=== PATIENT | female | born 1955 | race Caucasian/White ===

== ENCOUNTER 2018-11-18 14:34 | Observation (INO) | payer OTHER ==
[2018-11-18] MEDS ORDERED: ASPIRIN 81 MG TABLET, CHEWABLE PO ONE (15:33)
--- NOTE | 2018-11-18 15:35 | ER Document Report ---
ED Medical Screen (RME) - General Chief Complaint: Palpitations Stated Complaint: CHEST TIGHTNESS Time Seen by Provider: 11/18/18 15:33 Mode of Arrival: Ambulatory Information source: Patient Notes: Patient reports having midsternal chest discomfort that started around 2 PM. Patient states around 230 she had increased heart rate and measured her heart rate at 170 bpm. Patient does complain of some dizziness nausea and shortness of breath. hx: Hypertension I have greeted and performed a rapid initial assessment of this patient. A comprehensive ED assessment and evaluation of the patient, analysis of test results and completion of the medical decision making process will be conducted by additional ED providers. TRAVEL OUTSIDE OF THE [place] IN LAST 30 DAYS: No - Related Data Allergies/Adverse Reactions: No Known Allergies Allergy (Unverified 10/04/14 21:40) Past Medical History - Past Medical History Cardiac Medical History: Reports: Hx Hypercholesterolemia, Hx Hypertension Past Surgical History: Reports: Hx Appendectomy - Immunizations Hx Diphtheria, Pertussis, Tetanus Vaccination: Yes Physical Exam - Vital signs Vitals: Temp Pulse Resp BP Pulse Ox 98.7 F 84 18 147/83 H 96 11/18/18 14:39 11/18/18 14:39 11/18/18 14:39 11/18/18 14:39 11/18/18 14:39 - Respiratory Respiratory status: No respiratory distress Chest status: Nontender Breath sounds: Normal Chest palpation: Normal Course - Vital Signs Vital signs: Temp Pulse Resp BP Pulse Ox 98.7 F 84 18 147/83 H 96 11/18/18 14:39 11/18/18 14:39 11/18/18 14:39 11/18/18 14:39 11/18/18 14:39 Doctor's Discharge - Discharge Referrals: MANUEL OLIVEIRA PA [Primary Care Provider] - Follow up as needed
[2018-11-18 16:22] LABS: ABSOLUTE BASOPHILS # (AUTO) 0.1 10^3/uL (0.0-0.2); ABSOLUTE EOSINOPHILS # (AUTO) 0.1 10^3/uL (0.0-0.6); ABSOLUTE LYMPHOCYTES (AUTO) 1.6 10^3/uL (0.5-4.7); ABSOLUTE MONOCYTES (AUTO) 0.4 10^3/uL (0.1-1.4); BASOPHILS % (AUTO) 0.9 % (0-2); EOSINOPHILS % (AUTO) 1.2 % (0-6); HEMATOCRIT 43.5 % (36.0-47.0); LYMPHOCYTES % (AUTO) 22.6 % (13-45); MEAN CORPUSCULAR HEMOGLOBIN 28.5 pg (27.0-33.4); MEAN CORPUSCULAR HGB CONC 34.5 g/dL (32.0-36.0); MEAN CORPUSCULAR VOLUME 83 fl (80-97); MONOCYTES % (AUTO) 5.8 % (3-13); PLATELET COUNT 286 10^3/uL (150-450); RED BLOOD COUNT 5.27 10^6/uL (3.72-5.28); RED CELL DISTRIBUTION WIDTH 12.8 % (11.5-14.0); SEGMENTED NEUTROPHILS % (AUTO) 69.5 % (42-78); TOTAL CELLS COUNTED % (AUTO) 100 %; WHITE BLOOD COUNT 7.3 10^3/uL (4.0-10.5)
[2018-11-18 16:28] LABS: INTERNATIONAL RATION (INR) 0.85; PARTIAL THROMBOPLASTIN TIME 28.9 SEC (23.5-35.8)
--- NOTE | 2018-11-18 16:29 | ER Document Report ---
ED General - General Chief Complaint: Palpitations Stated Complaint: CHEST TIGHTNESS Time Seen by Provider: 11/18/18 15:33 Mode of Arrival: Ambulatory Information source: Patient Notes: This is a 63-year-old female with a history of asthma, hypertension who presents to the emergency room after an episode of chest fluttering, chest tightness and fast heartbeat. Patient does have a heart monitor attached to her watch and her heart rate was 170 at the time of her symptoms. She does report fatigue and being under a lot of stress lately. She currently denies any chest pain. TRAVEL OUTSIDE OF THE [place] IN LAST 30 DAYS: No - HPI Onset: This afternoon Onset/Duration: Gradual Quality of pain: Dull Severity: Mild Pain Level: 1 Associated symptoms: Chest pain. denies: Fever, Shortness of breath Exacerbated by: Denies Relieved by: Denies Similar symptoms previously: No Recently seen / treated by doctor: No - Related Data Allergies/Adverse Reactions: No Known Allergies Allergy (Unverified 10/04/14 21:40) Past Medical History - General Information source: Patient - Social History Smoking Status: Never Smoker Cigarette use (# per day): No Chew tobacco use (# tins/day): No Frequency of alcohol use: None Drug Abuse: None Lives with: Spouse/Significant other Family History: Reviewed & Not Pertinent Patient has suicidal ideation: No Patient has homicidal ideation: No - Past Medical History Cardiac Medical History: Reports: Hx Hypercholesterolemia, Hx Hypertension Pulmonary Medical History: Reports: None Neurological Medical History: Reports: None Endocrine Medical History: Reports: None Renal/ Medical History: Reports: None. Denies: Hx Peritoneal Dialysis Malignancy Medical History: Reports: None GI Medical History: Reports: None Psychiatric Medical History: Reports: None Traumatic Medical History: Reports: None Infectious Medical History: Reports: None Past Surgical History: Reports: Hx Appendectomy - Immunizations Hx Diphtheria, Pertussis, Tetanus Vaccination: Yes Hx Pneumococcal Vaccination: 08/18/14 Review of Systems - Review of Systems Constitutional: denies: Chills, Fever EENT: No symptoms reported Cardiovascular: See HPI Respiratory: No symptoms reported Gastrointestinal: No symptoms reported Genitourinary: No symptoms reported Female Genitourinary: No symptoms reported Musculoskeletal: No symptoms reported Skin: No symptoms reported Hematologic/Lymphatic: No symptoms reported Neurological/Psychological: No symptoms reported Physical Exam - Vital signs Vitals: Temp Pulse Resp BP Pulse Ox 98.7 F 84 18 147/83 H 96 11/18/18 14:39 11/18/18 14:39 11/18/18 14:39 11/18/18 14:39 11/18/18 14:39 Notes: Physical exam: GENERAL: Patient is alert and oriented x3, no acute distress. HEAD: Atraumatic, normocephalic. EYES: Pupils equal round and reactive to light, extraocular movements intact, sclera anicteric, conjunctiva are normal. ENT: TMs normal, nares patent, oropharynx clear without exudates. Moist mucous membranes. NECK: Normal range of motion, supple without obvious mass or JVD. LUNGS: Breath sounds clear to auscultation bilaterally and equal. No wheezes rales or rhonchi. HEART: Regular rate and rhythm without murmurs, rubs or gallops. ABDOMEN: Soft, normoactive bowel sounds. No tenderness to palpation. No guarding, no rebound. No masses appreciated. EXTREMITIES: Normal range of motion, no pitting or edema. No clubbing or cyanosis. NEUROLOGICAL: Cranial nerves II through XII grossly intact. Normal speech, moving all extremities. PSYCH: Normal mood, normal affect. SKIN: Warm, Dry, normal turgor, no rashes or lesions noted. Course - Vital Signs Vital signs: Temp Pulse Resp BP Pulse Ox 98.0 F 84 16 128/69 H 98 11/18/18 20:01 11/18/18 14:39 11/18/18 23:01 11/18/18 23:01 11/18/18 23:05 - Laboratory Result Diagrams: 11/18/18 14:00 11/18/18 14:00 Laboratory results interpreted by me: 11/18/18 14:00 Glucose 144 H AST 39 H - Diagnostic Test Radiology reviewed: Image reviewed, Reports reviewed - Chest x-ray shows no infiltrates or effusions - EKG Interpretation by Dc Rate: Normal Rhythm: NSR - EKG shows normal sinus rhythm with a flattened T waves anteriorly Discharge - Discharge Clinical Impression: Chest pain Condition: Stable Disposition: ADMITTED OBSERVATION Admitting Provider: Hospitalist - Dr. Aden Unit Admitted: Telemetry
--- NOTE | 2018-11-18 16:42 | RADIOLOGY REPORT (SQ) ---
EXAM DESCRIPTION: CHEST 2 VIEWS COMPLETED DATE/TIME: 11/18/2018 4:29 pm REASON FOR STUDY: cp COMPARISON: 02/14/2008. EXAM PARAMETERS: NUMBER OF VIEWS: two views TECHNIQUE: Digital Frontal and Lateral radiographic views of the chest acquired. RADIATION DOSE: NA LIMITATIONS: none FINDINGS: LUNGS AND PLEURA: No opacities, masses or pneumothorax. No pleural effusion. MEDIASTINUM AND HILAR STRUCTURES: No masses or contour abnormalities. HEART AND VASCULAR STRUCTURES: Heart normal size. No evidence for failure. BONES: No acute findings. Degenerative changes in the spine. HARDWARE: None in the chest. OTHER: No other significant finding. IMPRESSION: NO ACUTE RADIOGRAPHIC FINDING IN THE CHEST. TECHNICAL DOCUMENTATION: JOB ID: [id number] [employer]- All Rights Reserved Reading location - IP/workstation name: [email or web address]
[2018-11-18 16:55] LABS: ALANINE AMINOTRANSFERASE 32 U/L (9-52); ALBUMIN 4.2 g/dL (3.5-5.0); ALKALINE PHOSPHATASE 110 U/L (38-126); ANION GAP 8 (5-19); ASPARTATE AMINO TRANSFERASE 39 U/L (14-36); BILIRUBIN,DIRECT 0.4 mg/dL (0.0-0.4); BILIRUBIN,TOTAL 0.6 mg/dL (0.2-1.3); BLOOD UREA NITROGEN 16 mg/dL (7-20); CALCIUM 9.6 mg/dL (8.4-10.2); CARBON DIOXIDE 28 mmol/L (22-30); CHLORIDE 103 mmol/L (98-107); CREATINE KINASE 72 U/L (30-135); GLUCOSE 144 mg/dL (75-110); POTASSIUM 4.3 mmol/L (3.6-5.0); SODIUM 138.8 mmol/L (137-145)
[2018-11-18 17:12] LABS: TROPONIN I < 0.012 ng/mL
[2018-11-18] MEDS ORDERED: MAG HYDROX/AL HYDROX/SIMETH SUSP 30 ML UDCUP PO PRN (19:32)
[2018-11-18] MEDS ORDERED: NITROGLYCERIN 0.4 MG/TAB 25 TAB/BOTTLE SL PRN (19:32)
--- NOTE | 2018-11-18 19:47 | EKG REPORT ---
SEVERITY:- ABNORMAL ECG - SINUS RHYTHM NONSPECIFIC T ABNORMALITIES, ANT-LAT LEADS : Confirmed by: Constance Waters MD 18-Nov-2018 19:47:12
[2018-11-18 22:55] LABS: CREATINE KINASE MB 0.47 ng/mL (<4.55)
[2018-11-18 22:57] LABS: TROPONIN I < 0.012 ng/mL
[2018-11-19] MEDS ORDERED: ACETAMINOPHEN 325 MG TABLET PO PRN (01:36)
[2018-11-19 04:23] LABS: CHOLESTEROL 245.89 mg/dL (0-200); CREATINE KINASE 56 U/L (30-135); TRIGLYCERIDES 243 mg/dL (<150)
[2018-11-19 04:35] LABS: DIRECT LDL 139 mg/dL (<100)
[2018-11-19 04:37] LABS: CREATINE KINASE MB 0.38 ng/mL (<4.55)
[2018-11-19 04:42] LABS: VLDL CHOLESTEROL 48.6 mg/dL (10-31)
[2018-11-19 04:43] LABS: TROPONIN I < 0.012 ng/mL
--- NOTE | 2018-11-19 05:27 | PDOC H&P ---
History of Present Illness Admission Date/PCP: 11/18/18 19:40 HERB LEI Patient complains of: Palpitations and chest tightness History of Present Illness: BONG LIU is a 63 year old female with a past medical history of hypertension and dyslipidemia who presents 4 hours after the onset of palpitations while occurring at rest. Checking her heart rate it was initially 90 but jakub to 170 that was associated with chest tightness and radiation down the left arm. She denies shortness of breath nausea, nausea or vomiting. She denies previous episode she was unable to identify alleviating or exacerbating factors prompting evaluation at urgent care she was to have hypertension without tachycardia and was referred to the emergency room for evaluation where she is pain-free and found to have an unremarkable workup and referred to [facility] for evaluation. She denies recent change in medications, diet, caffeine, alcohol or diet supplementation. Past Medical History Cardiac Medical History: Reports: Hyperlipidema, Hypertension Pulmonary Medical History: Reports: None Neurological Medical History: Reports: None Endocrine Medical History: Reports: None Renal/ Medical History: Reports: None Malignancy Medical History: Reports: None GI Medical History: Reports: None, Other - Irritable bowel syndrome Psychiatric Medical History: Reports: None Traumatic Medical History: Reports: None Infectious Medical History: Reports: None Past Surgical History Past Surgical History: Reports: Appendectomy Social History Information Source: Patient, Emergency Med Personnel Lives with: Spouse/Significant other Smoking Status: Never Smoker Frequency of Alcohol Use: None Drugs: None - Advance Directive Resuscitation Status: Full Code Family History Family History: CAD - Mother of fatal NH at 60 years Parental Family History Reviewed: Yes Children Family History Reviewed: Yes Sibling(s) Family History Reviewed.: Yes Medication/Allergy Home Medications: Atorvastatin Calcium [Lipitor] 20 mg PO DAILY 10/04/14 Lisinopril/Hydrochlorothiazide [Zestoretic 20-12.5 Mg Tablet] 1 each PO DAILY 1 12/04/13 Allergies/Adverse Reactions: No Known Allergies Allergy (Unverified 10/04/14 21:40) Review of Systems Constitutional: ABSENT: chills, fever(s), headache(s), weight gain, weight loss Eyes: ABSENT: visual disturbances Ears: ABSENT: hearing changes Cardiovascular: ABSENT: chest pain, dyspnea on exertion, edema, orthropnea, palpitations Respiratory: ABSENT: cough, hemoptysis Gastrointestinal: ABSENT: abdominal pain, constipation, diarrhea, hematemesis, hematochezia, nausea, vomiting Genitourinary: ABSENT: dysuria, hematuria Musculoskeletal: ABSENT: joint swelling Integumentary: ABSENT: rash, wounds Neurological: ABSENT: abnormal gait, abnormal speech, confusion, dizziness, focal weakness, syncope Psychiatric: ABSENT: anxiety, depression, homidical ideation, suicidal ideation Endocrine: ABSENT: cold intolerance, heat intolerance, polydipsia, polyuria Hematologic/Lymphatic: ABSENT: easy bleeding, easy bruising Physical Exam Vital Signs: Temp Pulse Resp BP Pulse Ox 98.2 F 62 16 105/52 L 95 11/19/18 04:04 11/19/18 04:04 11/19/18 04:04 11/19/18 04:04 11/19/18 04:04 Intake & Output 11/17/18 11/18/18 11/19/18 11:59 11:59 11:59 Intake Total 390 Balance 390 Weight 88.4 kg General appearance: PRESENT: no acute distress, well-developed, well-nourished Head exam: PRESENT: atraumatic, normocephalic Eye exam: PRESENT: conjunctiva pink, EOMI, PERRLA. ABSENT: scleral icterus Ear exam: PRESENT: normal external ear exam Mouth exam: PRESENT: moist, tongue midline Neck exam: ABSENT: carotid bruit, JVD, lymphadenopathy, thyromegaly Respiratory exam: PRESENT: clear to auscultation manisha. ABSENT: rales, rhonchi, wheezes Cardiovascular exam: PRESENT: RRR. ABSENT: diastolic murmur, rubs, systolic murmur Pulses: PRESENT: normal dorsalis pedis pul Vascular exam: PRESENT: normal capillary refill GI/Abdominal exam: PRESENT: normal bowel sounds, soft. ABSENT: distended, guarding, mass, organolmegaly, rebound, tenderness Rectal exam: PRESENT: deferred Extremities exam: PRESENT: full ROM. ABSENT: calf tenderness, clubbing, pedal edema Neurological exam: PRESENT: alert, awake, oriented to person, oriented to place, oriented to time, oriented to situation, CN II-XII grossly intact. ABSENT: motor sensory deficit Psychiatric exam: PRESENT: appropriate affect, normal mood. ABSENT: homicidal ideation, suicidal ideation Skin exam: PRESENT: dry, intact, warm. ABSENT: cyanosis, rash Results Laboratory Results: 11/18/18 14:00 11/18/18 14:00 11/18/18 11/18/18 11/18/18 14:00 14:00 14:00 WBC 7.3 RBC 5.27 Hgb 15.0 Hct 43.5 MCV 83 MCH 28.5 MCHC 34.5 RDW 12.8 Plt Count 286 Seg Neutrophils % 69.5 Lymphocytes % 22.6 Monocytes % 5.8 Eosinophils % 1.2 Basophils % 0.9 Absolute Neutrophils 5.0 Absolute Lymphocytes 1.6 Absolute Monocytes 0.4 Absolute Eosinophils 0.1 Absolute Basophils 0.1 Sodium 138.8 Potassium 4.3 Chloride 103 Carbon Dioxide 28 Anion Gap 8 BUN 16 Creatinine 0.64 Est GFR ( Amer) > 60 Est GFR (Non-Af Amer) > 60 Glucose 144 H Calcium 9.6 Magnesium 2.0 Total Bilirubin 0.6 AST 39 H ALT 32 Alkaline Phosphatase 110 Total Protein 7.0 Albumin 4.2 Triglycerides Cholesterol LDL Cholesterol Direct VLDL Cholesterol HDL Cholesterol TSH 1.76 11/19/18 03:31 WBC RBC Hgb Hct MCV MCH MCHC RDW Plt Count Seg Neutrophils % Lymphocytes % Monocytes % Eosinophils % Basophils % Absolute Neutrophils Absolute Lymphocytes Absolute Monocytes Absolute Eosinophils Absolute Basophils Sodium Potassium Chloride Carbon Dioxide Anion Gap BUN Creatinine Est GFR ( Amer) Est GFR (Non-Af Amer) Glucose Calcium Magnesium Total Bilirubin AST ALT Alkaline Phosphatase Total Protein Albumin Triglycerides 243 H Cholesterol 245.89 H LDL Cholesterol Direct 139 H VLDL Cholesterol 48.6 H HDL Cholesterol 41 TSH 11/18/18 11/18/18 11/18/18 14:00 14:00 21:42 Creatine Kinase 72 CK-MB (CK-2) 0.60 0.47 Troponin I < 0.012 < 0.012 11/19/18 11/19/18 03:31 03:31 Creatine Kinase 56 CK-MB (CK-2) 0.38 Troponin I < 0.012 Impressions: Chest X-Ray 11/18/18 15:34 IMPRESSION: NO ACUTE RADIOGRAPHIC FINDING IN THE CHEST. Assessment & Plan - Diagnosis (1) Chest pain Is this a current diagnosis for this admission?: Yes Plan: Atypical chest pain though the patient's pain is atypical there are multiple risk factors for coronary artery disease and subsequently will observe and evaluation of acute coronary syndrome versus coronary artery disease with anginal equivalents. Cardiac monitoring blood pressure Q6 hours ,TSH, lipid profile, serial cardiac enzymes and cardiac stress test (2) Tachycardia Is this a current diagnosis for this admission?: Yes Plan: Telemetry monitoring, treatment determined by cause, rate and rhythm (3) Hypertension Is this a current diagnosis for this admission?: Yes Plan: LULY inhibitor (4) Dyslipidemia Is this a current diagnosis for this admission?: Yes Plan: Empiric statin, follow-up lipid profile (5) Hyperglycemia Is this a current diagnosis for this admission?: Yes Plan: Screening glycemia 140, follow-up A1c - Time Time Spent: 50 to 70 Minutes
[2018-11-19] MEDS ORDERED: ATORVASTATIN CALCIUM 20 MG TABLET PO SCH (10:00)
[2018-11-19] MEDS ORDERED: LISINOPRIL 10 MG TABLET PO SCH (10:00)
[2018-11-19] MEDS ORDERED: HYDROCHLOROTHIAZIDE 12.5 MG TABLET PO SCH (10:00)
[2018-11-19 12:52] LABS: CREATINE KINASE MB 0.35 ng/mL (<4.55)
[2018-11-19 12:55] LABS: TROPONIN I < 0.012 ng/mL
[2018-11-19 13:06] VITALS: BP 117/61
--- NOTE | 2018-11-19 13:06 | PDOC DISCHARGE SUMMARY ---
General - Admit/Disc Date/PCP Admission Date/Primary Care Provider: 11/18/18 19:40 MICHELLEHERB ALICEA Discharge Date: 11/19/18 - Discharge Diagnosis (1) Chest pain Is this a current diagnosis for this admission?: Yes Summary: Serial troponin studies were negative x3. The patient had a negative stress test. Chest pain is more likely due to stress. The patient usually exercise but work has been exceptionally busy. She has not been able to exercise. I suggested working with her primary care physician on stress management issues as well as returning to her exercise regimen. (2) Dyslipidemia Is this a current diagnosis for this admission?: Yes Summary: Continue atorvastatin (3) Hypertension Is this a current diagnosis for this admission?: Yes Summary: Continue lisinopril/hydrochlorothiazide - Additional Information Resuscitation Status: Full Code Discharge Diet: Cardiac Discharge Activity: Activity As Tolerated Home Medications: Atorvastatin Calcium [Lipitor] 20 mg PO DAILY 10/04/14 Lisinopril/Hydrochlorothiazide [Zestoretic 20-12.5 mg Tablet] 1 each PO DAILY 10/04/14 History of Present Illness Patient complains of: Chest pain History of Present Illness: BONG LIU is a 63 year old female who presented to the hospital after acute onset chest pressure/pain. There is a strong family history of cardiac disease. With exercise and weight loss the patient has been able to decrease her medication regimen. She was admitted to observation status for rule out. Hospital Course Hospital Course: The patient had an unremarkable hospital course. She was pain-free this morning. Troponin x3 was less than 0.012. She had a negative stress test this morning. She will be discharged home. She will follow-up with her primary care physician. Strongly encouraged stress management which includes returning to her exercise regimen, managing her work schedule and possible counseling for stress management. Physical Exam Vital Signs: Temp Pulse Resp BP Pulse Ox 97.6 F 64 16 133/70 H 97 11/19/18 11:21 11/19/18 11:21 11/19/18 11:21 11/19/18 11:21 11/19/18 11:21 Intake & Output 11/18/18 11/19/18 11/20/18 06:59 06:59 06:59 Intake Total 390 Balance 390 Weight 88.4 kg General appearance: PRESENT: no acute distress, well-developed Head exam: PRESENT: normocephalic Respiratory exam: PRESENT: clear to auscultation manisha, symmetrical, unlabored. ABSENT: rales, rhonchi, wheezes Cardiovascular exam: PRESENT: RRR, +S1, +S2 GI/Abdominal exam: PRESENT: normal bowel sounds, soft. ABSENT: distended, tenderness Extremities exam: ABSENT: pedal edema Musculoskeletal exam: PRESENT: normal inspection Neurological exam: PRESENT: alert, awake, oriented to person, oriented to place, oriented to time, oriented to situation, CN II-XII grossly intact Psychiatric exam: PRESENT: appropriate affect, normal mood. ABSENT: agitated, anxious Focused psych exam: ABSENT: restlessness Results Laboratory Results: 11/18/18 14:00 11/18/18 14:00 11/18/18 11/18/18 11/18/18 14:00 14:00 14:00 WBC 7.3 RBC 5.27 Hgb 15.0 Hct 43.5 MCV 83 MCH 28.5 MCHC 34.5 RDW 12.8 Plt Count 286 Seg Neutrophils % 69.5 Lymphocytes % 22.6 Monocytes % 5.8 Eosinophils % 1.2 Basophils % 0.9 Absolute Neutrophils 5.0 Absolute Lymphocytes 1.6 Absolute Monocytes 0.4 Absolute Eosinophils 0.1 Absolute Basophils 0.1 Sodium 138.8 Potassium 4.3 Chloride 103 Carbon Dioxide 28 Anion Gap 8 BUN 16 Creatinine 0.64 Est GFR ( Amer) > 60 Est GFR (Non-Af Amer) > 60 Glucose 144 H Calcium 9.6 Magnesium 2.0 Total Bilirubin 0.6 AST 39 H ALT 32 Alkaline Phosphatase 110 Total Protein 7.0 Albumin 4.2 Triglycerides Cholesterol LDL Cholesterol Direct VLDL Cholesterol HDL Cholesterol TSH 1.76 11/19/18 03:31 WBC RBC Hgb Hct MCV MCH MCHC RDW Plt Count Seg Neutrophils % Lymphocytes % Monocytes % Eosinophils % Basophils % Absolute Neutrophils Absolute Lymphocytes Absolute Monocytes Absolute Eosinophils Absolute Basophils Sodium Potassium Chloride Carbon Dioxide Anion Gap BUN Creatinine Est GFR ( Amer) Est GFR (Non-Af Amer) Glucose Calcium Magnesium Total Bilirubin AST ALT Alkaline Phosphatase Total Protein Albumin Triglycerides 243 H Cholesterol 245.89 H LDL Cholesterol Direct 139 H VLDL Cholesterol 48.6 H HDL Cholesterol 41 TSH 11/18/18 11/18/18 11/18/18 14:00 14:00 21:42 Creatine Kinase 72 CK-MB (CK-2) 0.60 0.47 Troponin I < 0.012 < 0.012 11/19/18 11/19/18 11/19/18 03:31 03:31 11:13 Creatine Kinase 56 CK-MB (CK-2) 0.38 0.35 Troponin I < 0.012 < 0.012 Impressions: Chest X-Ray 11/18/18 15:34 IMPRESSION: NO ACUTE RADIOGRAPHIC FINDING IN THE CHEST. Qualifiers - * PATIENT BEING DISCHARGED WITH ANY OF THE FOLLOWING DIAGNOSIS: No Plan Time Spent: Less than 30 Minutes
[2018-11-19] MEDS ORDERED: REGADENOSON INJ 0.4 MG/5 ML DISP.SYRIN IV ONE (14:12)
--- NOTE | 2018-11-19 18:53 | DRAGON STRESS TEST REPORT ---
Intravenous Lexiscan Cardiolite stress test using single photon emmision computerized tomography. Date of procedure: 11/19/2018. Ordering: Provider Dr. Ryan Aden. Patient's status: Inpatient Indication: Chest pain. Coronary risk factors: Age, hypertension, dyslipidemia, and family history of coronary artery disease. Resting EKG: Sinus Rhythm. Diffuse minor nonspecific T changes. Stress EKG: No changes of ischemia. The patient had no chest pain or discomfort, and there were no arrhythmias seen. Reason for termination: Protocol. Conclusions: Normal EKG and hemodynamic response to IV Lexiscan. Nuclear data: At rest the patient was given 13.02 millicuries of technetium 99m sestamibi injected intravenously. As per protocol rest non gated SPECT images were obtained. Subsequently the patient was given intravenous Lexiscan at a dose of 0.4 mg in 5 mL intravenously, followed by flush with normal saline. Subsequently the stress dose of 41.3 millicuries of technetium 99m sestamibi was injected intravenously. As per protocol stress gated images were obtained. Nuclear interpretation: Review of images showed that all segments of the myocardium had normal perfusion at rest, and normal perfusion post stress with IV Lexiscan. All segments of the myocardium had normal motion, contraction, and thickening by gated study. T. I D. ratio was normal at 1.07. There is no transient ischemic calcification of the left ventricle. Computer read rest, and stress left ventricular ejection fraction were 64 %, and 56 %, respectively. Conclusion: 1. There is no scintigraphic evidence of Lexiscan induced myocardial ischemia. 2. There is no scintigraphic evidence of myocardial infarction/scar. Recommendations: Aggressive risk factor modification, and treating the underlying co- morbidities. MTDD
== END 2018-11-19 14:52 | disposition home or self-care (01) ==
LOC: ER 14:34 → EH 19:40 → 5 11-19 00:05
PROVIDERS: ADMIT Internal Medicine; ATTEND Hospitalist
DX: R07.89 Other chest pain (principal); E78.5 Hyperlipidemia, unspecified; I10 Essential (primary) hypertension; R00.2 Palpitations; R00.0 Tachycardia, unspecified; R73.9 Hyperglycemia, unspecified; R53.83 Other fatigue; Z73.3 Stress, not elsewhere classified; R11.0 Nausea; R06.02 Shortness of breath; Z82.49 Family history of ischemic heart disease and other diseases of the circulatory system; Z79.899 Other long term (current) drug therapy; Z90.49 Acquired absence of other specified parts of digestive tract
CPT/HCPCS: 93005; 99285; 36415 ×2; 82553 ×2; 82550 ×2; 83735; 84443; 85025; 85610; 85730; 80053; 84484 ×2; 83036; 80061; 93017; 71046; 78452; 93010; G0378 ×2; A9500; J2785; J3490; Q9969